=== PATIENT | female | born 1945 | race Caucasian/White ===

== ENCOUNTER → 2024-07-22 15:17 | Outpatient (REF) | payer MEDICARE, OTHER, SELFPAY | LOC: RAD 15:17 | PROVIDERS: ATTENDING PHYSICIAN Student in an Organized Health Care Education/Training Program | DX: R10.13 Epigastric pain (principal) | CPT/HCPCS: 76700 ==

== ENCOUNTER → 2024-07-31 09:55 | Outpatient (REF) | payer MEDICARE, OTHER, SELFPAY | LOC: PAVMRI 09:55 | PROVIDERS: ATTENDING PHYSICIAN Specialist; FAMILY PHYSICIAN Student in an Organized Health Care Education/Training Program | DX: M25.552 Pain in left hip (principal) | CPT/HCPCS: 73721 ==

== ENCOUNTER → 2024-09-23 14:04 | Outpatient (REF) | payer MEDICARE, OTHER, SELFPAY | LOC: WDC 14:04 | PROVIDERS: ATTENDING PHYSICIAN Obstetrics & Gynecology Gynecology; FAMILY PHYSICIAN Student in an Organized Health Care Education/Training Program | DX: Z12.31 Encounter for screening mammogram for malignant neoplasm of breast (principal); R92.8 Other abnormal and inconclusive findings on diagnostic imaging of breast; Z12.39 Encounter for other screening for malignant neoplasm of breast | CPT/HCPCS: 76642; 77063; 77067 ==

== ENCOUNTER 2025-01-26 10:58 | Emergency (ER) | payer MEDICARE, OTHER, SELFPAY ==
[2025-01-26 11:12] VITALS: BP 140/80
[2025-01-26 11:45] LABS: % Basophils 0.5 % (0-2); % Eosinophils 0.5 % (0-6); % Immature Granulocytes 0.5 % (0-0.5); % Lymphocytes 13.5 % (20.5-51.1); % Monocytes 6.4 % (1.7-9.3); % Neutrophils 78.6 % (42.2-75.2); Absolute Lymphocytes 0.9 10^3/uL (1.2-3.4); Absolute Monocytes 0.4 10^3/uL (0.1-0.6); Absolute Neutrophils 5.1 10^3/uL (1.4-6.5); Hematocrit 42.8 % (37.0-47.0); Hemoglobin 14.2 g/dL (12.0-16.0); Mean Corp Hgb Conc. 33.2 g/dL (33.0-37.0); Mean Corpuscular Hgb 31.2 pg (27.0-31.0); Mean Corpuscular Volume 94.1 fL (81.0-99.0); Mean Platelet Volume 9.1 fL (7.4-10.4); Nucleated Red Blood Cells % 0 %; Platelet Count 176 10^3/uL (130-400); Red Blood Cell Count 4.55 10^6/uL (4.20-5.40); Red Cell Dist. Width 13.3 % (11.5-14.5); White Blood Cell Count 6.5 10^3/uL (4.8-10.8)
[2025-01-26 11:48] LABS: ALT (SGPT) 15 U/L (0-35); AST (SGOT) 21 U/L (14-36); Albumin 4.7 g/dl (3.5-5.0); Alkaline Phosphatase 45 U/L (38-126); Blood Urea Nitrogen 21 mg/dl (7-17); Calcium 9.9 mg/dl (8.4-10.2); Carbon Dioxide 32 mmol/L (22-30); Chloride 102 mmol/L (98-107); Glucose 99 mg/dl (70-99); Potassium 4.6 mmol/L (3.5-5.1); Sodium 139 mmol/L (135-145); Total Bilirubin 0.8 mg/dl (0.2-1.3); Total Protein 6.4 g/dl (6.3-8.2); eGFR > 60.00
[2025-01-26 12:00] LABS: Troponin I < 0.012 ng/ml
--- NOTE | 2025-01-26 13:02 | ED.GENMED ---
History of Present Illness
General
Chief Complaint: Chest Pain
Source: patient
Exam Limitations: none
Time Seen by Provider: 01/26/25 12:37
History of Present Illness
History of Present Illness:
79-year-old female presents with intermittent chest discomfort since 3 days ago. She also notes shortness of breath. The pain is made worse to breathe. No recent travel or surgery. No leg swelling or calf pain. Seen initially by her family
doctor and sent here for further evaluation. She does not recall any known injury. She was sick with the flu about a month ago but fully recovered from that. She is healthy and does not take any medications regularly. No other complaints at this
time
Past History
Past History
ED Past Medical History: None
ED Past Surgical History: None
Social History
Tobacco: Non-smoker
Alcohol: None
Drug: None
Personal:
Living: with family
Employment: Retired
Family History
Family History: Other (Noncontributory)
Phy Exam
Physical Exam
Physical Exam:
General: Well-appearing female no acute respiratory distress
HEENT: Normocephalic atraumatic
Heart: Regular rate and rhythm no murmurs lungs: Clear no wheeze
Abdomen is soft nontender nondistended extremities: No cyanosis or edema
Musculoskeletal exam: Reproducible pain just to the left of midline next to the sternum anteriorly. No step-offs or deformities
Scores
Heart Score for Chest Pain Patients
STEMI patient?: No
History: Slightly or Non-Suspicious
ECG: Normal
Age: >/= 65 years
Risk Factors: No Risk Factors
Troponin: </= Normal Limit
Heart Score for Chest Pain Patients: 2
Heart Score Risk: 2.5% MACE over next 6 weeks
Course
Orders/Labs/Results
Orders:
Orders
01/26/25 11:12
Electrocardiogram (*1) Urgent
Reason for Study: Chest Pain
EKG- Treatment ONCE
01/26/25 11:16
Complete Blood Count/With Diff Urgent
Comprehensive Metabolic Panel Urgent
Troponin I Urgent
01/26/25 13:00
CT Chest PE Study Urgent
Comment:
Reason For Exam: chest pain
Abnormal Lab Results
01/26/25
11:16
MCH 31.2 H pg
(27.0-31.0)
Absolute Lymphs (auto) 0.9 L 10^3/uL
(1.2-3.4)
Neutrophils % 78.6 H %
(42.2-75.2)
Lymphocytes % 13.5 L %
(20.5-51.1)
Carbon Dioxide 32 H mmol/L
(22-30)
BUN 21 H mg/dl
(7-17)
01/26/25 11:16
01/26/25 11:16
Vital Signs
Initial and Last Documented VS:
Initial Vital Signs
Temp Pulse Resp BP Pulse Ox
98.1 F 80 16 140/80 99
01/26/25 11:12 01/26/25 11:12 01/26/25 11:12 01/26/25 11:12 01/26/25 11:12
Last Documented Vital Signs
Temp Pulse Resp BP Pulse Ox
98.1 F 76 15 155/77 96
01/26/25 11:12 01/26/25 13:45 01/26/25 13:45 01/26/25 13:22 01/26/25 13:45
MDM/Problems Addressed
Differential Diagnosis Includes:
Chest pain. Consider ACS versus PE versus dissection versus chest wall strain
EKG shows normal sinus rhythm without ischemic changes. Troponin is undetectable. Patient has had 3 days worth of chest discomfort I would expect troponin to be elevated in setting of ACS. She did drop to 93% while walking in the doctor's office.
The pain is pleuritic. Will obtain CT scan of the chest to evaluate for PE
*Critical Care Note
Total Time (30-74mins, 75-104mins- exclusive of procedures): Not Applicable
Update Note
Update Note:
CT of chest shows no acute finding. There is an area of scarring in the right side of the chest and did suggest a possible old blood clot however patient was unaware she never had a pulmonary embolism. Currently her symptoms are on her left side.
I suspect musculoskeletal chest pain given the reproducibility with touch and motion. Recommended anti-inflammatories. Stable for discharge.
ED Attending Note
-
Portions of this chart may have been created with voice recognition software.� Occasional wrong word or��sound alike� substitutions may have occurred due to the inherent limitations of voice recognition software.
Discharge Plan
Departure
Patient Disposition: Home (Routine Discharge)
Date of Disposition: 01/26/25
Time of Disposition: 15:27
Patient with high blood pressure during this ER visit?: No
Discharge Problem:
Chest wall pain
Instructions: Costochondritis (DC)
Referrals:
Ambreen Ramsey DO [Family Provider] -
Activity Restrictions/Additional Instructions:
He may use ibuprofen or naproxen or Tylenol for your pain. Return here for worsening symptoms otherwise follow-up with your doctor
Interventions
Interventions:
*Risk Screen - Suicide Last Done: 01/26/25 11:13
*General Assessment Last Done: 01/26/25 13:19
*Neglect/Abuse Screening Last Done: 01/26/25 11:13
*ED- Fall Risk Assessment Last Done: 01/26/25 13:19
*ED COVID-19 Vaccine History Last Done: 01/26/25 13:19
ED- Cardiac Assessment Last Done: 01/26/25 13:19
Discharge Date and Time
Print Language: SINHALA
[2025-01-26 13:22] VITALS: BP 155/77
== END 2025-01-26 15:42 | disposition home or self-care (01) ==
LOC: EMR 10:58
PROVIDERS: Emergency Medicine; EMERGENCY PHYSICIAN Emergency Medicine; FAMILY PHYSICIAN Internal Medicine
DX: R07.89 Other chest pain (principal)
CPT/HCPCS: 99285; 71275; 80053; 84484; 85025; 93005; Q9967

== ENCOUNTER → 2025-03-16 09:40 | Outpatient (REF) | payer MEDICARE, OTHER, SELFPAY | LOC: HWRAD 09:40 | PROVIDERS: ATTENDING PHYSICIAN Internal Medicine Endocrinology, Diabetes & Metabolism; FAMILY PHYSICIAN Internal Medicine | DX: E04.2 Nontoxic multinodular goiter (principal) | CPT/HCPCS: 76536 ==

== ENCOUNTER → 2025-04-14 10:26 | Outpatient (REF) | payer MEDICARE, SELFPAY ==
[2025-04-14 10:52] VITALS: BP 151/86; BP_SYST 77
== END ==
LOC: RADI 10:26
PROVIDERS: ATTENDING PHYSICIAN Internal Medicine Endocrinology, Diabetes & Metabolism; FAMILY PHYSICIAN Internal Medicine
DX: E04.1 Nontoxic single thyroid nodule (principal)
CPT/HCPCS: 88173; 10005

== ENCOUNTER 2025-04-23 06:29 | Day surgery (SDC) | payer MEDICARE, SELFPAY | END 2025-04-23 11:15 | disposition home or self-care (01) | LOC: GI 06:29 | PROVIDERS: ATTENDING PHYSICIAN Internal Medicine Gastroenterology | DX: D12.3 Benign neoplasm of transverse colon (principal); K63.5 Polyp of colon; K57.30 Diverticulosis of large intestine without perforation or abscess without bleeding; K64.8 Other hemorrhoids; Q43.8 Other specified congenital malformations of intestine | CPT/HCPCS: 45380; 88305 ==

== ENCOUNTER → 2025-09-24 09:42 | Outpatient (REF) | payer MEDICARE, OTHER, SELFPAY | LOC: HWRAD 09:42 | PROVIDERS: ATTENDING PHYSICIAN Obstetrics & Gynecology Gynecology; FAMILY PHYSICIAN Internal Medicine | DX: M81.0 Age-related osteoporosis without current pathological fracture (principal); Z12.39 Encounter for other screening for malignant neoplasm of breast | CPT/HCPCS: 77063; 77067; 77080 ==